=== PATIENT | female | born 1955 | race Caucasian/White ===

== ENCOUNTER 2018-09-28 08:35 | Emergency (ER) | payer SELFPAY ==
[~2018-09-28] VITALS: Ht 162.6 cm; Wt 63.5 kg
[2018-09-28] MEDS ORDERED: SODIUM CHLORIDE 0.9% 1,000 ML IVB ONE (09:44)
[2018-09-28 10:35] LABS: Basophils # (auto) 0 uL; Basophils % (auto) 0.5 % (0.0-2.0); Eosinophils # (auto) 0.1 uL; Eosinophils % (auto) 1.2 % (0.0-7.0); Hemoglobin 14.1 g/dL (12.2-16.2); Lymphocytes # (auto) 0.8 uL; Lymphocytes % (auto) 19.8 % (10.0-50.0); Mean Corpuscular Hemoglobin 30.8 pg (28.0-32.0); Mean Corpuscular Hgb Conc. 33.5 g/dL (32.0-36.0); Mean Corpuscular Volume 91.9 fL (80.0-100.0); Monocytes # (auto) 0.2 uL; Monocytes % (auto) 4.6 % (0.0-12.0); Neutrophils # (auto) 3.2 uL; Neutrophils % (auto) 73.9 % (37.0-80.0); Nucleated Red Blood Cells % 0.1 %; Platelet Count (auto) 215 10^3/uL (140-450); Red Blood Cells 4.57 10^6/uL (4.0-5.20); Red Cell Distribution Width 13.8 % (11.8-14.3); White Blood Cell 4.3 10^3/uL (4.4-10.8)
[2018-09-28 10:52] LABS: Albumin 3.4 g/dL (3.4-5.0); Calcium 8.5 mg/dL (8.5-10.1); Magnesium 2.3 mg/dL (1.6-2.6); Potassium 4.1 mmol/L (3.5-5.1)
[2018-09-28 10:58] LABS: Bilirubin, Total 0.2 mg/dL (0.2-1.0); Total Protein 7.1 g/dL (6.4-8.2)
[2018-09-28 11:13] LABS: Urine WBC None Seen /hpf (0 - 5)
[2018-09-28 11:26] VITALS: BP 144/85
[2018-09-28 11:47] LABS: Alcohol, Urine < 3.0 mg/dL (0-5); Amphetamine Screen, Urine NEGATIVE (NEGATIVE); Barbiturate Scree,Urine NEGATIVE (NEGATIVE); Benzodiazephine Screen, Urine NEGATIVE (NEGATIVE); Cannabinoid Screen, Urine NEGATIVE (NEGATIVE); Cocaine Screen, Urine NEGATIVE (NEGATIVE); Opiate Scree,Urine POSITIVE (NEGATIVE); Phencyclidine Screen, Urine NEGATIVE (NEGATIVE)
[2018-09-28 12:33] LABS: Urine Bacteria FEW /hpf (None Seen); Urine Blood Negative /uL (Negative); Urine Specific Gravity 1.012 (1.001-1.035)
[2018-09-28 13:39] LABS: Acetaminophen < 2.0 ug/mL (10-30); Salicylate < 1.7 mg/dL (2.8-20.0)
== END 2018-09-28 13:13 | disposition home or self-care (01) ==
LOC: EDBD 08:35 → ER 08:35
DX: T40.601A Poisoning by unspecified narcotics, accidental (unintentional), initial encounter (principal); R73.9 Hyperglycemia, unspecified; M19.90 Unspecified osteoarthritis, unspecified site; Y92.89 Other specified places as the place of occurrence of the external cause
CPT/HCPCS: 36415; 80053; 80307; 80329; 81001; 83735; 84443; 85025; 93005; 99284; J7030

== ENCOUNTER 2022-09-08 07:43 | Emergency (ER) | payer BC, OTHER ==
[~2022-09-08] VITALS: Ht 165.1 cm; Wt 97.4 kg
[2022-09-08 08:09] VITALS: BP 186/108
[2022-09-08] MEDS ORDERED: ACETAMINOPHEN 500 MG TAB PO ONE (08:15)
[2022-09-08] MEDS ORDERED: LEVO750T64 PO (09:06)
[2022-09-08] MEDS ORDERED: ACET1CAP14 PO (09:09)
== END 2022-09-08 09:10 | disposition home or self-care (01) ==
LOC: ER 07:43
DX: J32.9 Chronic sinusitis, unspecified (principal); M19.90 Unspecified osteoarthritis, unspecified site; Z90.710 Acquired absence of both cervix and uterus; Z20.822 Contact with and (suspected) exposure to COVID-19
CPT/HCPCS: 36415; 87426; 87804